=== PATIENT | female | born 1930 | race Caucasian/White ===

== ENCOUNTER 2018-02-06 14:13 | Outpatient (CLI) | payer MEDICARE, BC ==
[2015-05-09 11:37] VITALS: O2SAT 97
== END 2018-02-06 14:14 | disposition home or self-care (01) | DRG 556 ==
LOC: CONVCARE 14:13
PROVIDERS: ATTEND Orthopaedic Surgery
DX: M25.552 Pain in left hip (principal); M48.07 Spinal stenosis, lumbosacral region; M48.061 Spinal stenosis, lumbar region without neurogenic claudication; M12.88 Other specific arthropathies, not elsewhere classified, other specified site
CPT/HCPCS: 72120

== ENCOUNTER 2018-02-12 09:32 | Day surgery (SDC) | payer MEDICARE, BC ==
[2018-02-12] MEDS ORDERED: BUPIVACAINE HCL 0.25% MPF 30 ML SOL INFIL ONE (10:22)
[2018-02-12 11:01] VITALS: BP 158/56; PULSE 43; RESP 18; TEMP 97.4; O2SAT 91
== END 2018-02-12 11:35 | disposition home or self-care (01) | DRG 554 ==
LOC: SURG 09:32
PROVIDERS: ATTEND Nurse Anesthetist, Certified Registered
DX: M12.88 Other specific arthropathies, not elsewhere classified, other specified site (principal)

== ENCOUNTER 2018-02-17 12:01 | Day surgery (SDC) | payer MEDICARE, BC ==
[2018-02-17] MEDS ORDERED: LIDOCAINE HCL 2% MPF 10 ML SOL ONE (12:30)
[2018-02-17] MEDS ORDERED: BUPIVACAINE HCL 0.5% MPF 10 ML SOL ONE (12:30)
[2018-02-17] MEDS ORDERED: LIDOCAINE HCL 1% MPF 30 SOL ONE (12:31)
[2018-02-17 12:45] VITALS: RESP 16
[2018-02-17 12:58] VITALS: PULSE 46
[2018-02-17 13:08] VITALS: BP 150/71; TEMP 97.6; O2SAT 93
== END 2018-02-17 13:35 | disposition home or self-care (01) | DRG 554 ==
LOC: SURG 12:01
PROVIDERS: ATTEND Nurse Anesthetist, Certified Registered
DX: M12.88 Other specific arthropathies, not elsewhere classified, other specified site (principal)
CPT/HCPCS: J2795; J2001

== ENCOUNTER 2018-03-18 07:54 | Day surgery (SDC) | payer MEDICARE, BC ==
[2018-03-18] MEDS ORDERED: LIDOCAINE HCL 2% MPF 10 ML SOL ONE (09:10)
[2018-03-18] MEDS ORDERED: BUPIVACAINE HCL 0.5% MPF 10 ML SOL ONE (09:12)
[2018-03-18] MEDS ORDERED: MIDAZOLAM 2 MG/2 ML SOL ONE (09:13)
[2018-03-18] MEDS ORDERED: FENTANYL 100MCG/2ML SOL ONE (09:13)
[2018-03-18] MEDS: TRIAMCINOLONE ACETONIDE 40 MG/ML SUS ONE ×4 (09:35→10:07)
[2018-03-18 10:27] VITALS: BP 143/75; PULSE 40; RESP 16; TEMP 96.8; O2SAT 94
== END 2018-03-18 10:51 | disposition home or self-care (01) | DRG 554 ==
LOC: SURG 07:54
PROVIDERS: ATTEND Nurse Anesthetist, Certified Registered
DX: M12.88 Other specific arthropathies, not elsewhere classified, other specified site (principal)
CPT/HCPCS: J2250; J3010; J3300

== ENCOUNTER 2018-04-30 10:14 | Day surgery (SDC) | payer MEDICARE, BC ==
[2018-04-30] MEDS ORDERED: BUPIVACAINE HCL 0.25% MPF 30 ML SOL INFIL ONE ×2 (11:21→11:53)
[2018-04-30] MEDS: DEXAMETHASONE SOD PHOS PF 10 MG/ML SOL IJ ONE ×2 (11:28→11:34)
[2018-04-30 11:47] VITALS: PULSE 63
[2018-04-30] MEDS ORDERED: TRIAMCINOLONE ACETONIDE 40 MG/ML SUS ONE (11:52)
[2018-04-30 11:57] VITALS: BP 173/70; RESP 16; TEMP 100.3; O2SAT 90
== END 2018-04-30 12:12 | disposition home or self-care (01) | DRG 552 ==
LOC: SURG 10:14
PROVIDERS: ATTEND Nurse Anesthetist, Certified Registered
DX: M99.53 Intervertebral disc stenosis of neural canal of lumbar region (principal)
CPT/HCPCS: J1100; J3300